=== PATIENT | male | born 1975 | race Caucasian/White ===

== ENCOUNTER 2023-05-08 13:30 | Emergency (ER) | payer SELFPAY ==
[~2023-05-08] VITALS: Ht 190.5 cm; Wt 122.5 kg
[2023-05-08 13:49] VITALS: BP 155/89
--- NOTE | 2023-05-08 13:54 | NUR ---
pt ambulatory to [facility] steady gait
--- NOTE | 2023-05-08 14:48 | NUR ---
PT AMBULATORY TO BED 09 W STEADY GAIT
[2023-05-08] MEDS ORDERED: NACL 0.9% 1,000 ML IV ONE (14:55)
--- NOTE | 2023-05-08 15:15 | NUR ---
First contact with pt. Pt bibs for L toe pain. Pt has had wound at L big toe that has been receiving tx. But states he noticed the second toe now has discoleration. Pt was being treated at triage but was now moved to room 9. IV placed without incident. Labs drawn and given to lab. Pt is a/o x 4, vss, no ss of acute distress, breathing equal and unlabored, speech clear, family at bedside.
[2023-05-08 15:29] LABS: BASOPHILS % (AUTO) 0.4 % (0.0-2.0); EOSINOPHILS # (AUTO) 0.1 K/uL (0-0.4); EOSINOPHILS % (AUTO) 1.4 % (0.0-4.0); HEMATOCRIT 40.8 % (36-52); HEMOGLOBIN 13.7 g/dL (12.0-18.0); LYMPHOCYTES # (AUTO) 1.6 K/uL (2.0-11.5); LYMPHOCYTES % (AUTO) 22.9 % (20.5-51.1); MEAN CORPUSCULAR HEMOGLOBIN 30 pg (27-31); MEAN CORPUSCULAR HGB CONC 34 g/dL (33-37); MONOCYTES # (AUTO) 0.7 K/uL (0.8-1.0); MONOCYTES % (AUTO) 9.7 % (1.7-9.3); NEUTROPHILS # (AUTO) 4.6 K/uL (1.8-7.7); NEUTROPHILS % (AUTO) 65.6 % (42.2-75.2); PLATELET COUNT (AUTO) 219 K/uL (140-450); RED BLOOD CELL COUNT(AUTO) 4.53 MIL/uL (4.20-6.10); RED CELL DISTRIBUTION WIDTH 13.4 % (11.6-13.7)
[2023-05-08] MEDS ORDERED: CEPH-588 PO (16:00)
[2023-05-08 16:01] LABS: ALBUMIN 2.7 g/dL (3.4-5.0); CARBON DIOXIDE 21.7 mmol/L (21-32); CREATININE 1.3 mg/dL (0.6-1.3); POTASSIUM 4.7 mmol/L (3.5-5.1); TOTAL BILIRUBIN 0.2 mg/dL (0.0-1.0)
[2023-05-08] MEDS ORDERED: IBUP-2213 PO (16:02)
[2023-05-08] MEDS ORDERED: BACITRACIN OINT 500 UNITS/GM PKT TP ONE (16:29)
--- NOTE | 2023-05-08 16:36 | NUR ---
1/2/3 TOES LEFT FOOT DRESSING APPLIED AND ORTHO SHOE + CMS
[2023-05-08 16:42] VITALS: BP 142/80
--- NOTE | 2023-05-08 16:43 | NUR ---
Patient discharged with v/s stable. Written and verbal after care instructions given and explained. Patient alert, oriented and verbalized understanding of instructions. Ambulatory with steady gait. All questions addressed prior to discharge. ID band removed. Patient advised to follow up with PMD. Rx info given in packet. Patient educated on indication of medication including possible reaction and side effects. Opportunity to ask questions provided and answered.
== END 2023-05-08 16:43 | disposition home or self-care (01) ==
LOC: MED 13:30
DX: S92.422A Displaced fracture of distal phalanx of left great toe, initial encounter for closed fracture (principal); E11.65 Type 2 diabetes mellitus with hyperglycemia; L97.528 Non-pressure chronic ulcer of other part of left foot with other specified severity; Z79.899 Other long term (current) drug therapy; X58.XXXA Exposure to other specified factors, initial encounter; Y93.89 Activity, other specified; Y92.89 Other specified places as the place of occurrence of the external cause; Y99.8 Other external cause status
CPT/HCPCS: 36415; 73630; 80053; 85025; 96360; 99284; J7030